=== PATIENT | male | born 1985 | race Hispanic/Latino ===

== ENCOUNTER 2020-11-07 11:11 | Emergency (ER) | payer OTHER, SELFPAY ==
[2020-11-07 11:20] VITALS: BP 103/73; PULSE 90; RESP 16; TEMP 37.6; O2SAT 96
--- NOTE | 2020-11-07 11:20 | ED.URI ---
HPI - URI/Sore Throat General Chief Complaint: Upper Respiratory Infection Stated Complaint: Covid symptoms Time Seen by Provider: 11/07/20 11:48 Source: patient and RN notes reviewed Mode of arrival: ambulatory Limitations: no limitations History of Present Illness HPI Narrative: 34-year-old male presents concern for 1 week history of fever, chills, body aches, nasal congestion. Reports temperature up to 103.6. Reports symptoms started 7 days ago. Reports 1 day after symptoms starting he was tested for Covid with a rapid test which was negative. Reports has been taking TheraFlu for symptom relief. He denies shortness of breath, difficulty breathing, loss of sense of taste or smell MD elicited complaint: nasal congestion Related Data Home Medications Medication Instructions Recorded Confirmed No Home Medications 11/07/20 11/07/20 Allergies Allergy/AdvReac Type Severity Reaction Status Date / Time No Known Allergies Allergy Verified 11/07/20 11:21 Review of Systems Review of Systems: Narrative: CONSTITUTIONAL: Reports malaise, chills, sweats, or fever. EYES: Denies visual changes, redness, or discharge. ENT: Reports rhinorrhea, congestion. Denies sinus pain, otalgia and sore throat. CARDIOVASCULAR: Denies chest pain, palpitations, or edema. RESPIRATORY: Reports cough. Denies dyspnea. GASTROINTESTINAL: Denies abdominal pain, nausea, vomiting, diarrhea SKIN: Denies rash or itching. MUSCULOSKELETAL: Reports myalgia. NEUROLOGIC: Denies headache. All systems reviewed & are unremarkable except as noted in HPI and below PMFSH Social History Social History Smoking status: Never smoker Alcohol intake: never Gender identity (if verbalized by the patient): Male Comments At time of signature, agree with nursing past medical, surgical, social and family history. There is no relevant family history pertinent to the presenting complaint Exam Narrative: Exam Narrative: GENERAL: Well-appearing, well-nourished, and in no acute distress. HEAD: Normocephalic EYES: PERRLA, conjunctivae clear ENT: Nares clear, turbinates edematous and erythematous, clear discharge. Mucous membranes moist. TM pearly tao with dull light reflex bilaterally; no tragal tenderness. Oropharynx mildly erythematous without lesions. Tonsils not enlarged and without exudate, no drooling, no hoarseness, no trismus, uvula midline. NECK: Supple. No lymphadenopathy CHEST: Clear to auscultation, breath sounds equal. No wheezing, rhonchi, rales, or stridor. No respiratory distress, speaks in full sentences. HEART: Regular rate and rhythm. No murmur heard. SKIN: Warm, dry, no rash. NEURO: Alert and oriented x3. PSYCH: Normal mood and affect Course Course Emergency Course: Patient is aware of diagnosis, understands and agrees to treatment plan. Anticipatory guidance given. Patient agrees to follow-up as directed and is aware of reasons to seek care at the emergency department. Portions of this record may have been created with voice recognition software Vital Signs Vital signs: Vital Signs Temperature 99.6 F 11/07/20 11:20 Pulse Rate 90 11/07/20 11:20 Respiratory Rate 16 11/07/20 11:20 Blood Pressure 103/73 11/07/20 11:20 Pulse Oximetry 96 11/07/20 11:20 Temperature 99.6 F 11/07/20 11:20 Pulse Rate 90 11/07/20 11:20 Respiratory Rate 16 11/07/20 11:20 Blood Pressure 103/73 11/07/20 11:20 Pulse Oximetry 96 11/07/20 11:20 Reviewed. MDM - URI/Sore Throat MDM Narrative Medical decision making narrative: Differential diagnosis considered: Regalado virus, strep pharyngitis, allergic rhinitis, upper respiratory tract infection, sinusitis, rhinosinusitis, nasopharyngitis. viral pharyngitis, otitis media, otitis externa, pneumonia, bronchitis, viral cough syndrome, viral syndrome, and influenza. Exam findings show no acute concerns or changes; patient is non-toxic appearing and is in no distress. Patient is appropriate for
[2020-11-08 17:22] LABS: SARS-CoV-2 RNA PCR Positive
== END 2020-11-07 12:12 | disposition home or self-care (01) ==
PROVIDERS: Emergency Provider Nurse Practitioner
DX: U07.1 COVID-19 (principal); B34.9 Viral infection, unspecified
CPT/HCPCS: 87081; 87426; 87804; 87880; 99213; C9803; G0463; U0003